=== PATIENT | male | born 1995 | race Caucasian/White ===

== ENCOUNTER 2021-03-07 17:13 | Inpatient (IN) ==
[2021-03-07 17:54] LABS: Amorphous Sediment,Urine Few per hpf (None-Few); Bacteria,Urine Few per hpf (None-Few); Bilirubin,Urine Negative (Negative); Blood,Urine Negative (Negative); Clarity,Urine Turbid (Clear); Color,Urine Light-Yellow (Yellow); Glucose,Urine (UA) Normal (Normal); Ketones,Urine Negative (Negative); Leukocyte Esterase,Urine Negative (Negative); Mucus,Urine Few per lpf (None-Few); Nitrite,Urine Negative (Negative); PH,Urine 6.5 pH Units (5.0-8.0); Protein,Urine Trace mg/dL (Neg-Trace); RBC,Urine 0-3 per hpf (0-3); Specific Gravity,Urine 1.014 (1.010-1.025); WBC,Urine 0-3 per hpf (0-3)
[2021-03-07 17:55] LABS: Amphetamine Screen,Urine Negative ng/mL (Cutoff=1000); Barbiturate Screen,Urine Negative ng/mL (Cutoff=200); Benzodiazepines Screen,Urine Negative ng/mL (Cutoff=200); Cannabinoid Screen,Urine Positive ng/mL (Cutoff = 50); Cocaine Screen,Urine Negative ng/mL (Cutoff= 300); Opiate Screen,Urine Negative ng/mL (Cutoff=300); Phencyclidine Screen,Urine Negative ng/mL (Cutoff=25)
[2021-03-07 18:18] LABS: Influenza A PCR Negative (Negative); Influenza B PCR Negative (Negative); Resp. Syncytial Virus PCR Negative (Negative); SARS-CoV-2 by PCR (In House) Negative (Negative)
[2021-03-07] MEDS ORDERED: *HR* LORazepam 1 MG TABLET PO PRN (20:22)
[2021-03-07] MEDS ORDERED: *HR* LORazepam 2 MG/ML VIAL IM PRN (20:22)
[2021-03-07] MEDS ORDERED: Ibuprofen 400 MG TABLET PO PRN (20:22)
[2021-03-07] MEDS ORDERED: haloperidoL 5 MG TABLET PO PRN (20:22)
[2021-03-07] MEDS ORDERED: Haloperidol Lactate 5 MG/ML VIAL IM PRN (20:22)
[2021-03-07] MEDS ORDERED: hydrOXYzine pamoate 25 MG CAPSULE PO PRN (20:22)
[2021-03-07] MEDS: Mirtazapine 15 MG TABLET PO SCH (22:06)
[2021-03-07] MEDS: hydrOXYzine pamoate 25 MG CAPSULE PO SCH (22:06)
[2021-03-07] MEDS: Acetaminophen 325 MG TABLET PO PRN (22:07)
[2021-03-08] MEDS: hydrOXYzine pamoate 25 MG CAPSULE PO SCH ×2 (08:50→20:32)
[2021-03-08] MEDS: Mirtazapine 15 MG TABLET PO SCH (20:32)
[2021-03-08] MEDS: traZODone 50 MG TABLET PO PRN (20:35)
[2021-03-09] MEDS: hydrOXYzine pamoate 25 MG CAPSULE PO SCH (08:38)
[2021-03-09] MEDS: traZODone 50 MG TABLET PO PRN (20:16)
[2021-03-09] MEDS: Mirtazapine 15 MG TABLET PO SCH (20:16)
[2021-03-10] MEDS: Acetaminophen 325 MG TABLET PO PRN (08:20)
[2021-03-10 12:33] VITALS: BP 144/96; PULSE 65; TEMP 97.9; O2SAT 94
== END 2021-03-10 10:20 | disposition home or self-care (01) | DRG 885 ==
LOC: EMEROOARM 17:13 → 1ANU 21:07
PROVIDERS: ADMIT Psychiatry & Neurology Psychiatry; ATTEND Psychiatry & Neurology Psychiatry

== ENCOUNTER 2021-03-22 09:17 | Inpatient (IN) ==
[2021-03-22 10:08] LABS: Amphetamine Screen,Urine Negative ng/mL (Cutoff=1000); Barbiturate Screen,Urine Negative ng/mL (Cutoff=200); Benzodiazepines Screen,Urine Negative ng/mL (Cutoff=200); Cannabinoid Screen,Urine Negative ng/mL (Cutoff = 50); Cocaine Screen,Urine Negative ng/mL (Cutoff= 300); Opiate Screen,Urine Negative ng/mL (Cutoff=300); Phencyclidine Screen,Urine Negative ng/mL (Cutoff=25)
[2021-03-22 10:11] LABS: Bacteria,Urine Few per hpf (None-Few); Bilirubin,Urine Negative (Negative); Blood,Urine Negative (Negative); Clarity,Urine Clear (Clear); Color,Urine Yellow (Yellow); Glucose,Urine (UA) Normal (Normal); Ketones,Urine Negative (Negative); Leukocyte Esterase,Urine Negative (Negative); Mucus,Urine Moderate per lpf (None-Few); Nitrite,Urine Negative (Negative); Protein,Urine 50 mg/dL (Neg-Trace); RBC,Urine 0-3 per hpf (0-3); Specific Gravity,Urine > 1.030 (1.010-1.025); Squamous Epithelial Cell,Urine Few per hpf (None-Few); WBC,Urine 0-3 per hpf (0-3)
[2021-03-22 10:19] LABS: Basophils # 0.1 K/mcL (0.0-0.2); Eosinophils # 0.2 K/mcL (0.0-0.6); Eosinophils % 3.7 %; Hematocrit 48.6 % (37.5-50.1); Hemoglobin 16.1 g/dL (12.9-16.9); Immature Granulocytes % 0.3 % (0-4); Lymphocytes # 1.9 K/mcL (0.6-4.6); Lymphocytes % 32.1 %; Mean Corpuscular HGB Conc 33.1 g/dL (31.6-35.5); Mean Corpuscular Hemoglobin 29.8 pg (28.0-33.3); Mean Platelet Volume 9.6 fL (9.4-12.4); Monocytes # 0.5 K/mcL (0.0-1.3); Monocytes % 8.3 %; Neutrophils # 3.2 K/mcL (1.6-8.9); Platelet Count 312 K/mcL (140-400); Red Cell Distribution Width 11.9 % (11.5-14.5); Segmented Neutrophils % 54.6 %; White Blood Count 5.9 K/mcL (4.3-11.1)
[2021-03-22 10:30] LABS: Acetaminophen 21 mcg/mL (10-20); BUN/Creatinine Ratio 8 (6-26); Blood Urea Nitrogen 9 mg/dL (6-20); Calcium 9.6 mg/dL (8.6-10.3); Carbon Dioxide 29 mEq/L (23-29); Chloride 104 mEq/L (98-107); Chol/HDL Ratio 3.5 (0-4.9); Cholesterol 151 mg/dL (< 200); Ethanol < 10 mg/dL (Less than 10); Glucose 95 mg/dL (70-105); HDL Cholesterol 43 mg/dL (40-59); LDL Cholesterol,Calculated 86 mg/dL (< 100); Osmolality,Calculated 286 (280-300); Potassium 3.6 mEq/L (3.5-5.1); Salicylate < 2.5 mg/dL (15.0-30.0); Sodium 139 mEq/L (136-145); Triglycerides 110 mg/dL (< 150); eGFR For African Americans > 60 (> 60); eGFR For Non-African Americans > 60 (> 60)
[2021-03-22 13:08] LABS: Influenza A PCR Negative (Negative); Influenza B PCR Negative (Negative); Resp. Syncytial Virus PCR Negative (Negative)
[2021-03-22 13:10] LABS: SARS-CoV-2 by PCR (In House) Negative (Negative)
[2021-03-22] MEDS ORDERED: hydrOXYzine pamoate 25 MG CAPSULE PO PRN (13:35)
[2021-03-22] MEDS ORDERED: haloperidoL 5 MG TABLET PO PRN (13:35)
[2021-03-22] MEDS ORDERED: Ibuprofen 400 MG TABLET PO PRN (13:35)
[2021-03-22] MEDS ORDERED: MOM Conc 10 ML UD.LIQ PO PRN (13:35)
[2021-03-22] MEDS ORDERED: *HR* LORazepam 2 MG/ML VIAL IM PRN (13:35)
[2021-03-22] MEDS ORDERED: *HR* LORazepam 1 MG TABLET PO PRN (13:35)
[2021-03-22] MEDS ORDERED: Haloperidol Lactate 5 MG/ML VIAL IM PRN (13:35)
[2021-03-22] MEDS ORDERED: traZODone 50 MG TABLET PO PRN (13:35)
[2021-03-22] MEDS ORDERED: Mag Hydrox/Al Hydrox/Simeth 30 ML UDC PO PRN (13:35)
[2021-03-22] MEDS: Mirtazapine 15 MG TABLET PO SCH (20:42)
[2021-03-23] MEDS: Vitamin B Complex/Vit C/Vit E 1 EACH TABLET PO SCH (09:54)
[2021-03-23] MEDS: Mirtazapine 15 MG TABLET PO SCH (20:03)
[2021-03-24] MEDS: Vitamin B Complex/Vit C/Vit E 1 EACH TABLET PO SCH (08:34)
[2021-03-24] MEDS: Mirtazapine 15 MG TABLET PO SCH (20:18)
[2021-03-25] MEDS: Vitamin B Complex/Vit C/Vit E 1 EACH TABLET PO SCH (08:47)
[2021-03-25 09:48] VITALS: BP 114/74; PULSE 66; TEMP 98.4; O2SAT 97
== END 2021-03-25 11:50 | disposition home or self-care (01) | DRG 885 ==
LOC: EMEROOARM 09:17 → 1ANU 13:34
PROVIDERS: ADMIT Psychiatry & Neurology Psychiatry; ATTEND Psychiatry & Neurology Psychiatry